=== PATIENT | male | born 1985 | race Caucasian/White ===

== ENCOUNTER 2016-11-05 14:54 | Inpatient (IN) | payer OTHER ==
[2016-11-05 16:09] VITALS: BMI 29.3
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
[2016-11-05] MEDS ORDERED: MENTHOL/PHENOL 1 EACH UD MM PRN (20:46)
[2016-11-05] MEDS ORDERED: diphenhydrAMINE HCL 50 MG CAPSULE PO PRN (20:46)
[2016-11-05] MEDS ORDERED: MAGNESIUM CITRATE 300 ML BOTTLE PO PRN (20:46)
[2016-11-05] MEDS ORDERED: LOPERAMIDE HCL 2 MG CAPSULE PO PRN (20:46)
[2016-11-05] MEDS ORDERED: ACETAMINOPHEN 325 MG TABLET (FP) PO PRN (20:46)
[2016-11-05] MEDS ORDERED: MAG HYDROX/AL HYDROX/SIMETH 30 ML UNIT-DOSE CUP PO PRN (20:46)
[2016-11-05] MEDS ORDERED: P-EPHED 60MG/TRIPROLIDI 2.5MG TABLET PO PRN (20:46)
[2016-11-05] MEDS ORDERED: NICOTINE POLACRILEX 4 MG GUM BUC PRN (20:46)
[2016-11-05] MEDS ORDERED: MAGNESIUM HYDROX 2400MG/30ML ORAL SUSPENSION 30 ML CUP PO PRN (20:46)
[2016-11-05] MEDS ORDERED: guaiFENesin/D-METHORPHAN HB 10 ML UNIT-DOSE CUPS PO PRN (20:46)
[2016-11-05] MEDS ORDERED: ALBUTEROL SO4 2.5/IPRATROPIUM 0.5 INH SOL 3 ML VIAL.NEB. NEB PRN (20:48)
[2016-11-05] MEDS ORDERED: ALBUTEROL SO4 6.7 GM HFA INHALER IH PRN (20:48)
[2016-11-05] MEDS ORDERED: THIAMINE HCL 100 MG TABLET (FP) PO SCH (22:00)
[2016-11-05] MEDS ORDERED: TUBERCULIN PPD 5 TU/0.1ML VIAL ID ONE (22:28)
[2016-11-05] MEDS: IBUPROFEN 400 MG TABLET (FP) PO PRN (22:42)
[2016-11-05] MEDS: CYCLOBENZAPRINE HCL 10 MG TABLET (FP) PO SCH (22:43)
[2016-11-05] MEDS: cloNIDine HCL 0.1 MG TABLET PO SCH (22:43)
[2016-11-06] MEDS: hydrOXYzine PAMOATE 50 MG CAPSULE (FP) PO PRN ×3 (01:01→15:22)
[2016-11-06 01:32] LABS: URINE APPEARANCE CLEAR; URINE BILIRUBIN NEGATIVE (NEGATIVE); URINE BLOOD NEGATIVE (NEGATIVE); URINE COLOR LTYELLOW; URINE GLUCOSE (UA) NEGATIVE (NEGATIVE); URINE KETONE NEGATIVE (NEGATIVE); URINE LEUK ESTERASE NEGATIVE (NEGATIVE); URINE NITRITE NEGATIVE (NEGATIVE); URINE PROTEIN NEGATIVE (NEGATIVE); URINE UROBILINOGEN NEGATIVE mg/dL (0.2-1.0)
[2016-11-06] MEDS: IBUPROFEN 400 MG TABLET (FP) PO PRN (06:14)
[2016-11-06] MEDS: CYCLOBENZAPRINE HCL 10 MG TABLET (FP) PO SCH ×2 (06:14→14:14)
[2016-11-06 06:52] VITALS: TEMP 97.7
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
[2016-11-06 09:54] LABS: MCH 29.5 pg (25.7-33.7); MCHC 33.4 g/dl (32.0-35.9); MEAN CELL VOLUME 88.3 fl (80-96); MEAN PLT VOLUME 7.2 fl (7.5-11.1); PLATELET COUNT 282 K/MM3 (134-434); RDW 13.2 % (11.9-15.9); WHITE BLOOD COUNT 10.4 K/mm3 (4.0-10.0)
[2016-11-06] MEDS ORDERED: NICOTINE 21 MG/24 HOURS TOPICAL PATCH TD SCH (10:00)
[2016-11-06] MEDS ORDERED: PRENATAL VITAMINS W/ FOLIC ACID TABLET (FP) PO SCH (10:00)
[2016-11-06 10:17] VITALS: BP 159/85; PULSE 83
[2016-11-06 10:19] LABS: ALBUMIN 3.4 g/dl (3.4-5.0); ALK PHOS 96 U/L (45-117); ANION GAP 6 (8-16); BILIRUBIN,TOTAL 0.6 mg/dL (0.2-1.0); CO2 30 mmol/L (21-32); CREATININE 0.9 mg/dL (0.7-1.3); GLUCOSE,RANDOM 93 mg/dL (74-106); SGOT/AST 30 U/L (15-37); SGPT/ALT 56 U/L (12-78); TOT PROT 6.9 g/dl (6.4-8.2)
[2016-11-06] MEDS: cloNIDine HCL 0.1 MG TABLET PO SCH (10:22)
[2016-11-06] MEDS ORDERED: PANTOPRAZOLE 40 MG TABLET (FP) PO SCH (10:45)
[2016-11-06] MEDS ORDERED: NAPROXEN 500 MG TABLET (FP) PO SCH (10:45)
[2016-11-06] MEDS ORDERED: ONDANSETRON *ODT* 4 MG TABLET SL ONE (10:45)
[2016-11-06] MEDS ORDERED: ONDANSETRON *ODT* 4 MG TABLET SL PRN (10:45)
[2016-11-06 13:00] LABS: HIV 1 & 2 AB NEGATIVE; HIV 1 AGp24 NEGATIVE
--- NOTE | 2016-11-06 13:27 | EKG ---
Test Reason : Blood Pressure : / mmHG Vent. Rate : 064 BPM Atrial Rate : 064 BPM P-R Int : 130 ms QRS Dur : 088 ms QT Int : 416 ms P-R-T Axes : 012 054 031 degrees QTc Int : 429 ms NORMAL SINUS RHYTHM NORMAL ECG NO PREVIOUS ECGS AVAILABLE Confirmed by ADENIKE MARIN, CHIRAG ([id number]) on 11/06/2016 1:27:26 PM Referred By: Shree Engel Confirmed By:CHIRAG JEONG MD
[2016-11-06] MEDS ORDERED: GABAPENTIN 100 MG CAPSULE (FP) PO SCH (14:00)
[2016-11-06] MEDS ORDERED: QUEtiapine FUMARATE 100 MG TABLET (FP) PO SCH ×2 (22:00)
[2016-11-07] MEDS ORDERED: QUEtiapine FUMARATE 200 MG TABLET PO SCH (22:00)
[2016-11-08] MEDS ORDERED: QUEtiapine FUMARATE 300 MG TABLET PO SCH (22:00)
== END 2016-11-06 16:25 | disposition left against medical advice (07) | DRG 770 ==
LOC: YASAS 14:54 → Y3W 19:56
PROVIDERS: ADMIT Psychiatry & Neurology Psychiatry; ATTEND Psychiatry & Neurology Psychiatry
PROC: HZ42ZZZ Group Counseling for Substance Abuse Treatment, Cognitive-Behavioral (ICD-10-PCS; principal; 2016-11-05)
DX: F11.20 Opioid dependence, uncomplicated (principal); F12.20 Cannabis dependence, uncomplicated; F17.210 Nicotine dependence, cigarettes, uncomplicated; F20.0 Paranoid schizophrenia; F32.9 Major depressive disorder, single episode, unspecified; I10 Essential (primary) hypertension; J45.22 Mild intermittent asthma with status asthmaticus; B18.2 Chronic viral hepatitis C
CPT/HCPCS: 36415; 80053; 81003; 85027; 86593; 87389; 93005; 93010